=== PATIENT | female | born 2000 | race Caucasian/White ===

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

== ENCOUNTER → 2023-11-01 | Outpatient (REF) | payer BC, OTHER ==
[2023-11-07 23:11] LABS: HSV-1 DNA Negative (Negative); HSV-2 DNA Positive (Negative)
== END ==
LOC: M SFHCWAGY 17:41
PROVIDERS: ATTEND Physician Assistant
DX: Z12.4 Encounter for screening for malignant neoplasm of cervix (principal); L98.9 Disorder of the skin and subcutaneous tissue, unspecified
CPT/HCPCS: 87529; G0123

== ENCOUNTER → 2024-06-14 | Outpatient (REF) | payer OTHER | LOC: M SFHCLERA 10:41 | DX: F41.1 Generalized anxiety disorder (principal); J45.20 Mild intermittent asthma, uncomplicated ==